=== PATIENT | male | born 1995 | race Caucasian/White ===

== ENCOUNTER 2017-01-31 02:02 | Emergency (ER) | payer BC ==
[2017-01-31 02:18] VITALS: BP 147/77
[2017-01-31] MEDS ORDERED: Lidocaine 1% with EPINEPHrine 1:100,000 50 ML MDV SUBCUT STA (02:25)
[2017-01-31] MEDS ORDERED: Bacitracin Oint 1 GM U/D Packet TOP ONE (02:25)
--- NOTE | 2017-01-31 03:08 | EDM.PDOC ---
ED HPI Skin/Rash - General Chief Complaint: Laceration Stated Complaint: LT FOREHEAD CUT Time Seen by Provider: 01/31/17 02:23 Source: Reports: Patient, Family, RN notes reviewed History Limitations: Reports: No limitations - History of Present Illness INITIAL COMMENTS - FREE TEXT/NARRATIVE: 21-year-old gentleman presents emergency department today with complaint of laceration to his forehead he states he slipped and fell on a chair denies any loss of consciousness nausea vomiting or shortness of breath - Related Data Allergies Allergy/AdvReac Type Severity Reaction Status Date / Time No Known Allergies Allergy Verified 01/31/17 02:05 Home Meds: Ambulatory Orders Medication Instructions Recorded Confirmed Ibuprofen 800 mg PO ASDIRECTED PRN 10/10/15 01/31/17 busPIRone HCl [Buspirone HCl] 1 tab PO DAILY 01/31/17 01/31/17 hydrOXYzine Pamoate [Hydroxyzine 1 tab PO DAILY 01/31/17 01/31/17 Pamoate] Past Medical History Musculoskeletal History: Reports: Fracture Other Musculoskeletal History: Broke bone in right hand Social & Family History - Tobacco Use Smoking Status *Q: Current Every Day Smoker Years of Tobacco use: 3 Packs/Tins Daily: 0.5 Used Tobacco, but Quit: No Second Hand Smoke Exposure: Yes - Caffeine Use Caffeine Use: Reports: None - Recreational Drug Use Recreational Drug Use: No Drug Use in Last 12 Months: Yes Recreational Drug Type: Reports: Marijuana/Hashish Recreational Drug Use Frequency: Socially ED ROS GENERAL - Review of Systems Review Of Systems: See Below Constitutional: Reports: no symptoms Respiratory: Reports: No Symptoms Cardiovascular: Reports: No symptoms GI/Abdominal: Reports: No symptoms : Reports: no symptoms Skin: Reports: wound ED EXAM, SKIN/RASH Exam: See Below Exam Limited By: No limitations General Appearance: alert, WD/WN, no apparent distress Eye Exam: bilateral eye: normal inspection Respiratory/Chest: no respiratory distress Neurological: alert, oriented, CN II-XII intact, normal cognition, normal gait Location, Skin: head Front/Back Body Diagram: 1 - 4 cm x 4 cm laceration L-shaped completely through the dermis ED SKIN PROCEDURES - Laceration/Wound Repair Head Lac/wound length in cm: 8 Appearance: subcutaneous, muscle, linear, clean Distal NVT: neuro & vascular intact, no tendon injury Anesthetic type: local Local anesthesia - Lidocaine (Xylocaine): 1% with epi Local anesthetic volume: 3cc Skin prep: chlorhexidine (hibiciens), saline Saline irrigation (cc's): 500 Exploration/Debridement/Repair: wound explored, in a bloodless field, explored to base Closed with: sutures, helio (5) Suture size: other (5-0) # of sutures: 1 Suture type: Running Suture size: 4-0 # of sutures: 5 Repaired with: vicryl Sterile dressing applied: nurse Tetanus status addressed: Yes (2014) Complications: No Course - Vital Signs Last Recorded V/S: Last Vital Signs Temp 99.6 F 01/31/17 02:16 Pulse 124 H 01/31/17 02:16 Resp 16 01/31/17 02:16 BP 147/77 H 01/31/17 02:16 Pulse Ox 97 01/31/17 02:16 - Orders/Labs/Meds Meds: Medications Discontinued Medications Generic Name Dose Route Start Last Admin Trade Name Freq PRN Reason Stop Dose Admin Bacitracin 1 dose 01/31/17 02:25 01/31/17 02:31 Bacitracin Oint 1 Gm TOP 01/31/17 02:26 1 dose ONETIME ONE Administration Lidocaine/Epinephrine 20 ml 01/31/17 02:25 01/31/17 02:31 Xylocaine 1% With Epinephrine 1:100,000 SUBCUT 01/31/17 02:26 20 ml NOW STA Administration Departure - Departure Time of Disposition: 03:06 Disposition: Home, Self-Care 01 Condition: good Clinical Impression: Forehead laceration Qualifiers: Encounter type: initial encounter Qualified Code(s): S01.81XA - Laceration without foreign body of other part of head, initial encounter Forms: ED Department Discharge Additional Instructions: suture removal in 10 days, follow wound care instruction sheet, follow up with your primary care for suture removal - Assessment/Plan Plan: Assessment Acuity = acute Site and laterality = 8 cm laceration scalp Etiology = secondary to trauma Manifestations = bleeding now controlled Location of injury = home Lab values = none Plan suture and staple removal in 10 days followup with primary care, follow wound care instruction sheet Patient was in agreement with the plan all questions were answered, they were instructed to return to the emergency department or call for worsening symptoms. This note was dictated using [employer] voice recognition software please call with any questions.
== END 2017-01-31 03:15 | disposition home or self-care (01) ==
LOC: JP.ED 02:02
DX: S01.81XA Laceration without foreign body of other part of head, initial encounter (principal); W01.0XXA Fall on same level from slipping, tripping and stumbling without subsequent striking against object, initial encounter; Z79.899 Other long term (current) drug therapy; F17.210 Nicotine dependence, cigarettes, uncomplicated
CPT/HCPCS: 12034; 12054; 99283-25

== ENCOUNTER 2017-02-01 15:43 | Emergency (ER) | payer BC ==
[2017-02-01 16:14] VITALS: BP 128/72
--- NOTE | 2017-02-01 16:42 | EDM.PDOC ---
ED HPI Skin/Rash - General Chief Complaint: Wound Recheck Stated Complaint: CUT HEAD YESTERDAY PAIN MEDS Time Seen by Provider: 02/01/17 16:30 Source: Reports: Patient History Limitations: Reports: No limitations - History of Present Illness INITIAL COMMENTS - FREE TEXT/NARRATIVE: History of present illness: [Patient is here complaining of pain at the site of the laceration that he sustained when he was sent with a chair which was repaired here by Dr. Champagne. He alleges that he's been using ibuprofen and Tylenol and not experience any relief of his pain in that he can't sleep because it hurt so bad.] Review of systems: As per history of present illness and below otherwise all systems reviewed and negative. Past medical history: As per history of present illness and as reviewed below otherwise noncontributory. Surgical history: As per history of present illness and as reviewed below otherwise noncontributory. Social history: No reported history of drug or alcohol abuse. Family history: As per history of present illness and as reviewed below otherwise noncontributory. Physical exam: HEENT: Examination of the injury site shows that it is intact with no evidence of infection no drainage and appears to be healing well. Lungs: Clear to auscultation Heart: S1S2, regular, Abdomen: Soft, nondistended, nontender. Negative for masses or hepatosplenomegaly. Negative for costovertebral tenderness. Neuro: Awake, alert, oriented. Exam nonfocal. Diagnostics: [] Therapeutics: [] Impression: [Followup of scalp laceration] Plan: [He's provided indomethacin 25 mg 1 by mouth every 4 hours when necessary pain # 20 he is to take it with food. I would be very reluctant to give this young man narcotics for pain.] Definitive disposition and diagnosis as appropriate pending reevaluation and review of above. - Related Data Allergies Allergy/AdvReac Type Severity Reaction Status Date / Time No Known Allergies Allergy Verified 01/31/17 02:05 Home Meds: Ambulatory Orders Medication Instructions Recorded Confirmed Ibuprofen 800 mg PO ASDIRECTED PRN 10/10/15 01/31/17 busPIRone HCl [Buspirone HCl] 1 tab PO DAILY 01/31/17 01/31/17 hydrOXYzine Pamoate [Hydroxyzine 1 tab PO DAILY 01/31/17 01/31/17 Pamoate] Escitalopram [Lexapro] 02/01/17 02/01/17 Past Medical History - Past Health History Medical/Surgical History: Denies Medical/Surgical History Musculoskeletal History: Reports: Fracture Other Musculoskeletal History: Broke bone in right hand Social & Family History - Tobacco Use Smoking Status *Q: Current Every Day Smoker Years of Tobacco use: 7 Packs/Tins Daily: 0.5 Used Tobacco, but Quit: No Second Hand Smoke Exposure: Yes - Caffeine Use Caffeine Use: Reports: None - Recreational Drug Use Recreational Drug Use: No Drug Use in Last 12 Months: Yes Recreational Drug Type: Reports: Marijuana/Hashish Recreational Drug Use Frequency: Socially ED ROS GENERAL - Review of Systems Review Of Systems: ROS reveals no pertinent complaints other than HPI. ED EXAM, SKIN/RASH Exam: See Below Course - Vital Signs Last Recorded V/S: Last Vital Signs Temp 36.7 C 02/01/17 16:10 Pulse 90 02/01/17 16:10 Resp 14 02/01/17 16:10 BP 128/72 02/01/17 16:10 Pulse Ox 98 02/01/17 16:10 Departure - Departure Time of Disposition: 16:41 Disposition: Home, Self-Care 01 Condition: good Clinical Impression: Scalp laceration Qualifiers: Encounter type: subsequent encounter Qualified Code(s): S01.01XD - Laceration without foreign body of scalp, subsequent encounter Forms: ED Department Discharge Additional Instructions: You can take Tylenol with the medication that I prescribed him again I would recommend that you continue to try to ice the area as that I think will help him with anything else as far as pain control
== END 2017-02-01 17:09 | disposition home or self-care (01) ==
LOC: JP.ED 15:43
DX: S01.01XD Laceration without foreign body of scalp, subsequent encounter (principal); F17.210 Nicotine dependence, cigarettes, uncomplicated; Z79.899 Other long term (current) drug therapy
CPT/HCPCS: 99283